=== PATIENT | female | born 1985 | race Caucasian/White ===

== ENCOUNTER 2017-05-13 17:18 | Emergency (ER) | payer MEDICAID, OTHER ==
[~2017-05-13] VITALS: Ht 167.6 cm; Wt 73.0 kg
[~2017-05-13 17:18] MED LIST: PEDI1CHW6 CHEW
[2017-05-13 17:43] VITALS: BP 157/100; PULSE 86; RESP 16; TEMP 99.4; O2SAT 94
[2017-05-13 18:11] VITALS: BP 131/81; PULSE 78; RESP 18; O2SAT 98
[2017-05-13] MEDS ORDERED: guaiFENesin/CODEINE SYRUP 200 MG/20 MG/10 ML CUP PO ONE (18:30)
--- NOTE | 2017-05-13 18:32 | PD ---
HPI Chief Complaint: Cold / Flu Symptoms Time Seen by Provider: 18:17 Travel History International Travel<30 days: No Contact w/Intl Traveler<30days: No Traveled to known affect area: No History of Present Illness HPI 31yo F with no significant PMH presents to the ED with c/o cough, throat pain, sob, nausea for about 1 week. Said she had generalized muscle ache and thought she had the flu. Said she felt warm and took ibuprofen prior to coming. States she has chest pain with coughing and it is midsternal. Denies any hemoptysis, history or PE/DVT, recent surgery, OCP. PFSH Past Medical History Anxiety: Yes Cancer: No Cardiovascular Problems: No Diabetes: No Diminished Hearing: No Endocrine: No Gastrointestinal Disorders: Yes GERD: Yes Genitourinary: No Hepatitis: No Hiatal Hernia: No Immune Disorder: No Kidney Stones: Yes Musculoskeletal: No Neurologic: No Psychiatric: No Reproductive: No Respiratory: No Immunizations Current: Yes Thyroid Disease: No Ulcer: No Tetanus Vaccination: Unknown Influenza Vaccination: No ?: Not LMP: 1 WEEK AGO : 2 Para: 1 Tubal Ligation: Yes Past Surgical History Abdominal Surgery: Yes Cardiac Surgery: No Cholecystectomy: Yes Ear Surgery: No Endocrine Surgery: No Eye Surgery: No Genitourinary Surgery: No Gynecologic Surgery: No Oral Surgery: No Pacemaker: No Thoracic Surgery: No Other Surgery: Yes (BREAST IMPLANTS) Social History Alcohol Use: No Tobacco Use: No Substance Use: No Allergies-Medications (Allergen,Severity, Reaction): Coded Allergies: No Known Allergies (Verified Adverse Reaction, Unknown, 05/13/17) Reported Meds & Prescriptions Reported Meds & Active Scripts Active Azithromycin 250 Mg Tab 250 Mg PO DAILY 4 Days Review of Systems Except as stated in HPI: all other systems reviewed are Neg Physical Exam Narrative GENERAL: 31yo F in mild distress. SKIN: Focused skin assessment warm/dry. HEAD: Atraumatic. Normocephalic. EYES: Pupils equal and round. No scleral icterus. No injection or drainage. ENT: No nasal bleeding or discharge. Mucous membranes pink and moist. NECK: Trachea midline. No JVD. CARDIOVASCULAR: Regular rate and rhythm. No murmur appreciated. RESPIRATORY: No accessory muscle use. Coarse breath sounds in left lower lung. O2 sat 98% on RA. GASTROINTESTINAL: Abdomen soft, non-tender, nondistended. MUSCULOSKELETAL: No obvious deformities. No clubbing. No cyanosis. No edema. NEUROLOGICAL: Awake and alert. No obvious cranial nerve deficits. Motor grossly within normal limits. Normal speech. PSYCHIATRIC: Appropriate mood and affect; insight and judgment normal. Data Data Last Documented VS Vital Signs Date Time Temp Pulse Resp B/P (MAP) Pulse Ox O2 Delivery O2 Flow Rate FiO2 05/13/17 18:11 78 18 131/81 (98) 98 Room Air 05/13/17 17:43 99.4 Orders Orders Electrocardiogram (05/13/17 ) Chest, Single Ap (05/13/17 ) Influenzae A/B Antigen (05/13/17 18:27) Group A Rapid Strep Screen (05/13/17 18:27) Guaifen-Cod 200-20 Mg/10ml Liq (Robituss (05/13/17 18:30) Strep Culture (Group A) (05/13/17 18:20) Azithromycin (Zithromax) (05/13/17 20:15) MDM Medical Decision Making Medical Screen Exam Complete: Yes Emergency Medical Condition: Yes Interpretation(s) EKG: NSR 70bpm. Normal axis. RBBB. TWI III. Differential Diagnosis URI vs. viral syndrome vs. pneumonia Narrative Course 31yo F with cough and coarse breath sounds on left lower lung. Pt is well appearing with normal vital signs. She is young with no comorbidities and tolerating PO. CXR showed left lower lobe pneumonia, will prescribe azithromycin. First dose given. Negative group A strep and influenza. Return precautions given. Diagnosis Primary Impression: Left lower lobe pneumonia Qualified Codes: J18.1 - Lobar pneumonia, unspecified organism Patient Instructions: General Instructions Departure Forms: Tests/Procedures Additional Instructions: Please follow up with your primary care physician in 3-7 days. Return to the ED if symptoms worsen. Med/Other Pt SpecificInfo: Prescription(s) given Scripts Azithromycin (Azithromycin) 250 Mg Tab 250 MG PO DAILY for Infection for 4 Days, #4 TAB 0 Refills Prov: Yelena Sims DO 05/13/17 Disposition: 01 DISCHARGE HOME Condition: Stable Yelena Sims DO May 13, 2017 18:32
--- NOTE | 2017-05-13 19:20 | RADRPT ---
EXAM DATE/TIME: 05/13/2017 19:10 [facility] COMPARISON: No previous studies available for comparison. INDICATIONS : Cough and shortness of breath for 8 days. MEDICAL HISTORY : None. SURGICAL HISTORY : None. ENCOUNTER: Initial ACUITY: 1 week PAIN SCORE: 4/10 LOCATION: Bilateral chest FINDINGS: A single portable frontal view the chest shows intraalveolar infiltrate within the left lower lobe. R ight lung is clear. No effusions. Heart is normal in size. Scoliotic spine. Cholecystectomy clips. CONCLUSION: Left lower lobe pneumonia. Long Luong Jr., MD on May 13, 2017 at 19:18 Board Certified Radiologist. This report was verified electronically.
[2017-05-13] MEDS ORDERED: AZIT250T3 PO (20:03)
[2017-05-13] MEDS ORDERED: AZITHROMYCIN 250 MG TAB PO ONE (20:15)
[2017-05-13] MEDS ORDERED: IBUPROFEN 600 MG TAB PO ONE (20:45)
[2017-05-13 20:52] VITALS: BP 132/82; TEMP 99
--- NOTE | 2017-05-14 09:44 | EKG ---
Date Performed: 05/13/2017 Time Performed: 18:47:58 PTAGE: 31 years EKG: Sinus rhythm RIGHT BUNDLE BRANCH BLOCK ABNORMAL ECG INTERPRETATION BASED ON A DEFAULT AGE OF 38 YEARS NO PREVIOUS TRACING DOCTOR: Jas Bahena Interpretating Date/Time 05/14/2017 09:43:29
== END 2017-05-13 20:58 | disposition home or self-care (01) ==
LOC: PHED 17:18
DX: J18.1 Lobar pneumonia, unspecified organism (principal); I45.10 Unspecified right bundle-branch block
CPT/HCPCS: 71010; 87081; 87804; 87880; 93005; 99284

== ENCOUNTER 2017-05-17 07:49 | Emergency (ER) | payer MEDICAID ==
[~2017-05-17] VITALS: Ht 167.6 cm; Wt 78.1 kg
[~2017-05-17 07:49] MED LIST changes: +AZIT250T3 PO; -PEDI1CHW6 CHEW
[2017-05-17 07:57] VITALS: BP 156/89; PULSE 92; RESP 16; TEMP 98.1; O2SAT 94
[2017-05-17 08:15] VITALS: RESP 16; O2SAT 96
--- NOTE | 2017-05-17 08:18 | PD ---
HPI Chief Complaint: Respiratory Symptoms Time Seen by Provider: 08:09 Travel History International Travel<30 days: No Contact w/Intl Traveler<30days: No Traveled to known affect area: No History of Present Illness HPI 31-year-old female presents with continued cough and shortness of breath since being discharged with pneumonia recently. She is on her last day of azithromycin today and is scheduled to take it about noon. She states that she' s not having worsening of her symptoms but she is just not getting better. She states she has not had any fever or vomiting or any new complaints. She states she wanted to make sure that her pneumonia wasn't worse and whether she needed more antibiotic. She feels worse when she coughs and moves around. She also denies any other change since recently being here. PFSH Past Medical History Anxiety: Yes Cancer: No Cardiovascular Problems: No Diabetes: No Diminished Hearing: No Endocrine: No Gastrointestinal Disorders: Yes GERD: Yes Genitourinary: No Hepatitis: No Hiatal Hernia: No Immune Disorder: No Kidney Stones: Yes Musculoskeletal: No Neurologic: No Psychiatric: No Reproductive: No Respiratory: No Immunizations Current: Yes Thyroid Disease: No Ulcer: No Influenza Vaccination: No ?: Not LMP: 2 weeks ago : 3 Para: 3 Tubal Ligation: Yes Past Surgical History Abdominal Surgery: Yes Cardiac Surgery: No Section: Yes (X 1) Cholecystectomy: Yes Ear Surgery: No Endocrine Surgery: No Eye Surgery: No Genitourinary Surgery: No Gynecologic Surgery: No Oral Surgery: No Pacemaker: No Thoracic Surgery: No Other Surgery: Yes (BREAST IMPLANTS) Social History Alcohol Use: Yes (OCC) Tobacco Use: No (NEVER) Substance Use: No Allergies-Medications (Allergen,Severity, Reaction): Coded Allergies: No Known Allergies (Verified Adverse Reaction, Unknown, 05/17/17) Reported Meds & Prescriptions Reported Meds & Active Scripts Active Azithromycin 250 Mg Tab 500 Mg PO DAILY 5 Days Review of Systems Except as stated in HPI: all other systems reviewed are Neg Physical Exam Narrative GENERAL: Well-nourished, well-developed patient. Well-appearing SKIN: Warm and dry. HEAD: Normocephalic and atraumatic. EYES: No injection or drainage. ENT: No nasal drainage noted. Posterior oropharynx without exudate or erythema , bilateral TMs clear NECK: Supple, trachea midline. No meningeal signs CARDIOVASCULAR: Regular rate and rhythm RESPIRATORY: Good aeration throughout, mild crackles left base. No accessory muscle use. GASTROINTESTINAL: Abdomen soft, non-tender, nondistended. EXTREMITIES: No edema. BACK: Nontender without obvious deformity. No CVA tenderness NEUROLOGICAL: Awake and alert. Motor and sensory grossly within normal limits. Normal speech. Data Data Last Documented VS Vital Signs Date Time Temp Pulse Resp B/P (MAP) Pulse Ox O2 Delivery O2 Flow Rate FiO2 05/17/17 11:35 05/17/17 11:20 76 16 96 Room Air 05/17/17 07:57 98.1 Orders Orders Urinalysis - C+S If Indicated (05/17/17 08:09) Chest, Pa & Lat (05/17/17 08:09) Oximetry (05/17/17 08:09) Complete Blood Count With Diff (05/17/17 08:51) Comprehensive Metabolic Panel (05/17/17 08:51) Lactic Acid Sepsis Protocol (05/17/17 08:51) Iv Access Insert/Monitor (05/17/17 08:51) Urine Culture (05/17/17 08:53) Ceftriaxone Inj (Rocephin Inj) (05/17/17 10:15) Ed Discharge Order (05/17/17 10:14) Labs Laboratory Tests Test 05/17/17 08:53 05/17/17 09:05 Urine Collection Type CLEAN CATCH Urine Color YELLOW Urine Turbidity CLEAR Urine pH 6.0 Urine Specific [place] 1.015 Urine Protein NEG mg/dL Urine Glucose (UA) NEG mg/dL Urine Ketones NEG mg/dL Urine Occult Blood NEG Urine Nitrite NEG Urine Bilirubin NEG Urine Leukocyte Esterase NEG Urine RBC 0-3 /hpf Urine WBC 0-2 /hpf Urine Squamous Epithelial Cells > 8 /hpf Urine Bacteria MOD /hpf Microscopic Urinalysis Comment CULTURE INDICATED Urine Collection Time 08:53 White Blood Count 5.7 TH/MM3 Red Blood Count 4.70 MIL/MM3 Hemoglobin 12.7 GM/DL Hematocrit 37.9 % Mean Corpuscular Volume 80.7 FL Mean Corpuscular Hemoglobin 27.0 PG Mean Corpuscular Hemoglobin Concent 33.4 % Red Cell Distribution Width 13.1 % Platelet Count 313 TH/MM3 Mean Platelet Volume 6.8 FL Neutrophils (%) (Auto) 63.7 % Lymphocytes (%) (Auto) 21.2 % Monocytes (%) (Auto) 8.4 % Eosinophils (%) (Auto) 6.3 % Basophils (%) (Auto) 0.4 % Neutrophils # (Auto) 3.6 TH/MM3 Lymphocytes # (Auto) 1.2 TH/MM3 Monocytes # (Auto) 0.5 TH/MM3 Eosinophils # (Auto) 0.4 TH/MM3 Basophils # (Auto) 0.0 TH/MM3 CBC Comment DIFF FINAL Differential Comment Blood Urea Nitrogen 10 MG/DL Creatinine 0.69 MG/DL Random Glucose 82 MG/DL Total Protein 7.6 GM/DL Albumin 3.5 GM/DL Calcium Level 8.5 MG/DL Alkaline Phosphatase 122 U/L Aspartate Amino Transf (AST/SGOT) 33 U/L Alanine Aminotransferase (ALT/SGPT) 49 U/L Total Bilirubin 0.3 MG/DL Sodium Level 139 MEQ/L Potassium Level 3.7 MEQ/L Chloride Level 104 MEQ/L Carbon Dioxide Level 25.7 MEQ/L Anion Gap 9 MEQ/L Estimat Glomerular Filtration Rate 98 ML/MIN Lactic Acid Level 1.0 mmol/L MDM Medical Decision Making Medical Screen Exam Complete: Yes Emergency Medical Condition: Yes Medical Record Reviewed: Yes (past history confirmed) Interpretation(s) CBC & BMP Diagram 05/17/17 09:05 Total Protein 7.6, Albumin 3.5, Calcium Level 8.5, Alkaline Phosphatase 122 H, Aspartate Amino Transf (AST/SGOT) 33, Alanine Aminotransferase (ALT/SGPT) 49, Total Bilirubin 0.3 Last 24 hours Impressions Chest X-Ray 05/17/17 0809 Signed Impressions: Service Date/Time: Wednesday, May 17, 2017 08:21 - CONCLUSION: Left lower lobe airspace disease characteristic of pneumonitis. Matthew Bazzi MD ADDENDUM: COMPARISON: CHEST SINGLE AP, May 13, 2017, 19:10. Compared to the recent exam performed on 05/13 the left lower lobe infiltrate has improved and demonstrates partial resolution. Matthew Bazzi MD Differential Diagnosis Pneumonia, upper respiratory infection, musculoskeletal, UTI Narrative Course Will check chest x-ray and urinalysis and reevaluate. Patient is in agreement to plan. If x-ray is not improving or worsening Will add on blood work Chest x-ray shows mild improvement, blood work shows no significant findings, will dose with Rocephin 1 g and have patient continue 5 days of azithromycin for completion, Patient denies any new complaints and states that they are feeling better. Patient happy with care, all questions answered. Patient knows that follow up is incumbent on them and to return to the emergency room immediately if new or worsening symptoms develop. Patient given strict return precautions, vitals reviewed and are normal, agrees to further workup as an outpatient. Diagnosis Primary Impression: Pneumonia Qualified Codes: J18.1 - Lobar pneumonia, unspecified organism Patient Instructions: General Instructions Additional Instructions: return as needed, set up a primary for follow up this week, tylenol as needed for pain Med/Other Pt SpecificInfo: Prescription(s) given Scripts Azithromycin (Azithromycin) 250 Mg Tab 500 MG PO DAILY for Infection for 5 Days, #10 TAB 0 Refills Prov: Priscila Cody MD 05/17/17 Disposition: 01 DISCHARGE HOME Condition: Stable Priscila Cody MD May 17, 2017 08:18
--- NOTE | 2017-05-17 08:40 | RADRPT ---
EXAM DATE/TIME: 05/17/2017 08:21 This report includes an Addendum and supersedes previous reports for this exam. [facility] COMPARISON: No previous studies available for comparison. INDICATIONS : States she is being treated for pneumonia, not getting better, has Short of breath and coughing MEDICAL HISTORY : Pneumonia SURGICAL HISTORY : None. ENCOUNTER: Initial ACUITY: 2 weeks PAIN SCORE: 0/10 LOCATION: Bilateral chest FINDINGS: Increased opacity is present throughout the left lower lobe. Left upper lobe and right lung remain cl ear. Heart and mediastinal structures are stable. CONCLUSION: Left lower lobe airspace disease characteristic of pneumonitis. Matthew Bazzi MD on May 17, 2017 at 8:38 Board Certified Radiologist. This report was verified electronically. ADDENDUM: COMPARISON: CHEST SINGLE AP, May 13, 2017, 19:10. Compared to the recent exam performed on 05/13 the left lower lobe infiltrate has improved and demonst rates partial resolution. Matthew Bazzi MD on May 17, 2017 at 8:57 Board Certified Radiologist. This report was verified electronically.
[2017-05-17 08:58] LABS: BLOOD, URINE NEG (NEG); GLUCOSE,URINE NEG (NEG); KETONE, URINE NEG (NEG); NITRITE,URINE NEG (NEG)
[2017-05-17 09:03] LABS: METHOD OF COLLECTION CLEAN CATCH; URINE COLOR YELLOW (YELLW/STRAW)
[2017-05-17 09:04] LABS: BACTERIA, URINE MOD /hpf; COMMENT (UR) CULTURE INDICATED; CULTURE IF INDICATED CULTURE INDICATED; RBC, URINE 0-3 /hpf (0-3); SQUAMOUS EPITHELIAL CELL URINE > 8 /hpf (0-5); WBC, URINE 0-2 /hpf (0-5)
[2017-05-17 09:05] VITALS: RESP 16; O2SAT 97
[2017-05-17 09:12] LABS: AUTOMATED NEUTROPHIL # 3.6 TH/MM3 (1.8-7.7); BASOPHIL % 0.4 % (0.0-2.0); EOSINOPHIL # 0.4 TH/MM3 (0-0.4); EOSINOPHIL % 6.3 % (0.0-4.0); HEMATOCRIT 37.9 % (35.0-46.0); HEMO FLAGS DIFF FINAL; LYMPH % 21.2 % (9.0-44.0); LYMPHOCYTE # 1.2 TH/MM3 (1.0-4.8); MEAN CELL VOLUME 80.7 FL (80.0-100.0); MEAN CORPUSCULAR HGB CONC 33.4 % (32.0-36.0); MONO % 8.4 % (0.0-8.0); NEUT % 63.7 % (16.0-70.0); PLATELET COUNT 313 TH/MM3 (150-450); RED CELL DISTRIBUTION WIDTH 13.1 % (11.6-17.2); WHITE BLOOD COUNT 5.7 TH/MM3 (4.0-11.0)
[2017-05-17 09:37] VITALS: BP 135/91; PULSE 72; RESP 16; O2SAT 95
[2017-05-17 09:55] LABS: BICARBONATE 25.7 MEQ/L (21.0-32.0); BLOOD UREA NITROGEN 10 MG/DL (7-18)
[2017-05-17 09:58] LABS: ALT (GPT) 49 U/L (10-53); AST (GOT) 33 U/L (15-37); GLOMERULAR FILTRATION RATE 98 ML/MIN (>89)
[2017-05-17 09:59] LABS: TOTAL BILIRUBIN ADULT 0.3 MG/DL (0.2-1.0)
[2017-05-17 10:00] LABS: ALKALINE PHOSPHATASE 122 U/L (45-117); ANION GAP 9 MEQ/L (5-15); CHLORIDE 104 MEQ/L (98-107); POTASSIUM 3.7 MEQ/L (3.5-5.1); SODIUM (NA) 139 MEQ/L (136-145)
[2017-05-17] MEDS ORDERED: AZIT250T3 PO (10:10)
[2017-05-17] MEDS ORDERED: cefTRIAXone INJ 1,000 MG in SODIUM CHLORIDE 0.9% INJ 100 ML IV ONE (10:15)
[2017-05-17 11:20] VITALS: BP 137/93; PULSE 76; RESP 16; O2SAT 96
== END 2017-05-17 11:37 | disposition home or self-care (01) ==
LOC: PHED 07:49
DX: J18.1 Lobar pneumonia, unspecified organism (principal); R82.99 Other abnormal findings in urine; Z86.59 Personal history of other mental and behavioral disorders; Z87.19 Personal history of other diseases of the digestive system; Z87.442 Personal history of urinary calculi
CPT/HCPCS: 71020; 80053; 81001; 83605; 85025; 87086; 96365; 99284; J0696